=== PATIENT | male | born 1960 | race Caucasian/White ===

== ENCOUNTER 2022-01-19 15:23 | Outpatient (CLI) | payer OTHER, SELFPAY ==
[2022-01-19 16:21] LABS: Albumin* 4.4 g/dL (3.3-5.0); Chloride* 106 mmol/L (96-114); Sodium* 139 mmol/L (135-149)
[2022-01-19 16:23] LABS: Creatinine* 0.8 mg/dL (0.5-1.5); Estimated Glomerular Filt Rate 101.32
[2022-01-19 16:24] LABS: Alanine Aminotransferase* 93 U/L (4-50); Alkaline Phosphatase* 80 U/L (40-150); Aspartate Amino Transferase* 89 U/L (12-35); Bilirubin Total* 0.4 mg/dL (0.1-1.5); Blood Urea Nitrogen* 12 mg/dL (7-30); Calcium* 9.2 mg/dL (8.4-10.6); Carbon Dioxide* 28 mmol/L (20-32); Glucose* 128 mg/dL (60-115); Total Protein* 7.3 g/dL (6.0-8.3)
== END 2022-01-19 15:24 | disposition home or self-care (01) ==
PROVIDERS: PCP Family Medicine; Visit Provider Family Medicine
DX: E03.9 Hypothyroidism, unspecified (principal); R42 Dizziness and giddiness; F41.9 Anxiety disorder, unspecified; E78.5 Hyperlipidemia, unspecified; D12.6 Benign neoplasm of colon, unspecified; M10.9 Gout, unspecified
CPT/HCPCS: 80053; 84443

== ENCOUNTER 2022-03-19 08:30 | Outpatient (CLI) | payer OTHER, SELFPAY ==
[2022-03-19 15:14] LABS: Cholesterol* 194 mg/dL (90-199); HDL Cholesterol* 31 mg/dL (>=40); LDL Cholesterol Calculated 127 mg/dL (<100); Triglycerides* 179 mg/dL (40-149)
== END 2022-03-19 08:31 | disposition home or self-care (01) ==
PROVIDERS: PCP Family Medicine; Visit Provider Family Medicine
DX: E78.5 Hyperlipidemia, unspecified (principal)
CPT/HCPCS: 80061

== ENCOUNTER 2022-07-30 08:10 | Outpatient (CLI) | payer OTHER, SELFPAY | END 2022-07-30 08:11 | disposition home or self-care (01) | LOC: OP CLINIC 08:12 | PROVIDERS: PCP Family Medicine; Visit Provider Surgery | DX: Z12.11 Encounter for screening for malignant neoplasm of colon (principal); K57.30 Diverticulosis of large intestine without perforation or abscess without bleeding; Z80.0 Family history of malignant neoplasm of digestive organs; Z86.010 Personal history of colon polyps | CPT/HCPCS: 45378; 99153; J2250; J3010 ==

== ENCOUNTER 2023-02-11 08:15 | Outpatient (CLI) | payer OTHER, SELFPAY | END 2023-02-11 08:16 | disposition home or self-care (01) | LOC: NFLDREF 16:10 | PROVIDERS: PCP Family Medicine; Referring Provider Family Medicine; Visit Provider Family Medicine | DX: E78.5 Hyperlipidemia, unspecified (principal); R53.1 Weakness; R53.83 Other fatigue; E03.9 Hypothyroidism, unspecified; K76.0 Fatty (change of) liver, not elsewhere classified; Z13.1 Encounter for screening for diabetes mellitus; Z12.5 Encounter for screening for malignant neoplasm of prostate | CPT/HCPCS: 80053; 80061; 84153; 84403; 84443 ==

== ENCOUNTER 2023-03-29 08:10 | Outpatient (CLI) | payer OTHER, SELFPAY | END 2023-03-29 08:11 | disposition home or self-care (01) | LOC: NFLDREF 03-31 05:46 | PROVIDERS: PCP Family Medicine; Referring Provider Family Medicine; Visit Provider Family Medicine | DX: E29.1 Testicular hypofunction (principal) | CPT/HCPCS: 84403 ==

== ENCOUNTER 2023-07-19 07:48 | Outpatient (CLI) | payer OTHER, SELFPAY | END 2023-07-19 07:49 | disposition home or self-care (01) | LOC: NFLDREF 13:30 | PROVIDERS: PCP Family Medicine; Referring Provider Family Medicine; Visit Provider Family Medicine | DX: E13.9 Other specified diabetes mellitus without complications (principal); E78.2 Mixed hyperlipidemia; E29.1 Testicular hypofunction | CPT/HCPCS: 80061; 84270; 84402; 84403 ==

== ENCOUNTER 2024-02-25 11:34 | Outpatient (CLI) | payer OTHER, SELFPAY | END 2024-02-25 11:35 | disposition home or self-care (01) | PROVIDERS: PCP Family Medicine; Visit Provider Family Medicine | DX: E13.9 Other specified diabetes mellitus without complications (principal); E78.5 Hyperlipidemia, unspecified; E03.9 Hypothyroidism, unspecified; E29.1 Testicular hypofunction | CPT/HCPCS: 80048; 80061; 84443 ==

== ENCOUNTER 2025-01-06 09:09 | Outpatient (CLI) | payer OTHER, SELFPAY | END 2025-01-06 09:10 | disposition home or self-care (01) | PROVIDERS: PCP Family Medicine; Visit Provider Family Medicine | DX: E78.5 Hyperlipidemia, unspecified (principal); E11.9 Type 2 diabetes mellitus without complications; E03.9 Hypothyroidism, unspecified; Z12.5 Encounter for screening for malignant neoplasm of prostate; Z13.0 Encounter for screening for diseases of the blood and blood-forming organs and certain disorders involving the immune mechanism | CPT/HCPCS: 80048; 80061; 84443; G0103 ==